=== PATIENT | female | born 1985 | race Two or more races ===

== ENCOUNTER 2016-12-10 05:42 | Day surgery (SDC) | payer OTHER ==
[~2016-12-10] VITALS: Ht 160 cm; Wt 63.5 kg
[2016-12-10] MEDS ORDERED: BUPIVACAINE-MPF 0.25% 30 ML VIAL INJ ONE (07:20)
[2016-12-10] MEDS ORDERED: MIDAZOLAM 2 MG/2 ML VIAL ONE (09:04)
[2016-12-10] MEDS ORDERED: fentaNYL 0.05 MG/ML VIAL ONE (09:04)
[2016-12-10] MEDS ORDERED: GLYCOPYRROLATE 0.2 MG/ML VIAL IV ONE (09:11)
[2016-12-10] MEDS ORDERED: DESFLURANE 240 ML BTL INH ONE (09:11)
[2016-12-10] MEDS ORDERED: KETOROLAC 30 MG/ML VIAL IVP ONE (09:11)
[2016-12-10] MEDS ORDERED: ONDANSETRON 4 MG/2 ML VIAL IVP ONE (09:11)
[2016-12-10] MEDS ORDERED: ROCURONIUM 50 MG/5 ML VIAL IV ONE (09:11)
[2016-12-10] MEDS ORDERED: LIDOCAINE 2% 100 MG/5 ML SYR IVP ONE (09:11)
[2016-12-10] MEDS ORDERED: PROPOFOL 200 MG/20 ML VIAL IV ONE (09:11)
[2016-12-10] MEDS ORDERED: SUCCINYLCHOLINE CHLORIDE 200 MG/10 ML VIAL IV ONE (09:11)
[2016-12-10] MEDS ORDERED: DEXAMETHASONE 4 MG/ML VIAL IVP ONE (09:11)
[2016-12-10] MEDS ORDERED: NEOSTIGMINE 1:1000 10 MG/10 ML VIAL IM ONE (09:11)
[2016-12-10] MEDS ORDERED: FERR-252 PO (09:16)
[2016-12-10] MEDS ORDERED: ONDANSETRON 4 MG/2 ML VIAL IVP PRN (10:10)
[2016-12-10] MEDS ORDERED: NACL 0.9% 1,000 ML IV SCH (10:36)
[2016-12-10] MEDS: HYDROmorphone 1 MG/ML AMP IVP PRN ×2 (10:40→10:50)
[2016-12-10] MEDS ORDERED: ONDANSETRON 4 MG/2 ML VIAL IV PRN (10:40)
[2016-12-10] MEDS ORDERED: ACETAMINOPHEN 325 MG TAB PO PRN (10:40)
[2016-12-10] MEDS ORDERED: MORPHINE SULFATE 4 MG/ML SYR IV PRN (10:40)
[2016-12-10] MEDS ORDERED: HYDROcodone/APAP 5/325 MG 1 TAB TAB PO PRN (10:40)
[2016-12-10] MEDS ORDERED: HYDROmorphone 1 MG/ML AMP IVP PRN (10:40)
[2016-12-10] MEDS ORDERED: HYDROmorphone PFS 2 MG/ML SYR ONE (10:53)
== END 2016-12-10 12:30 | disposition home or self-care (01) ==
LOC: MDS 05:42 → MMU 06:03 → MDS 12:30
PROVIDERS: ATTEND Surgery
DX: K80.20 Calculus of gallbladder without cholecystitis without obstruction (principal); E66.3 Overweight; K21.9 Gastro-esophageal reflux disease without esophagitis; J45.909 Unspecified asthma, uncomplicated; I12.9 Hypertensive chronic kidney disease with stage 1 through stage 4 chronic kidney disease, or unspecified chronic kidney disease; N18.9 Chronic kidney disease, unspecified; D64.9 Anemia, unspecified; F03.90 Unspecified dementia, unspecified severity, without behavioral disturbance, psychotic disturbance, mood disturbance, and anxiety; E11.22 Type 2 diabetes mellitus with diabetic chronic kidney disease; G40.909 Epilepsy, unspecified, not intractable, without status epilepticus
CPT/HCPCS: 36415; 47562; 71010; 86886; 86900; 86901; 88304; J0330; J0690; J1100; J1170; J1885; J2001; J2250; J2405; J2704; J2710; J3010; J3490; J7060; J7120